=== PATIENT | female | born 1990 | race Two or more races ===

== ENCOUNTER 2018-05-28 22:31 | Emergency (ER) | payer OTHER ==
[~2018-05-28] VITALS: Ht 165.1 cm; Wt 114.5 kg
[2018-05-28] MEDS ORDERED: IV NORMAL SALINE 1,000ML 1,000 ML IV SCH (23:17)
--- NOTE | 2018-05-28 23:23 | PHYS DOC ---
Past History Past Medical History: Anxiety, Depression, Ectopic Past Surgical History: Cholecystectomy Adult General Chief Complaint Chief Complaint: ABDOMINAL PAIN HPI HPI Patient is a 27 year old female who presents with complaint of lower abdominal and rectal pain. Patient states her symptoms started yesterday and patient states that she had left-sided abdominal pain yesterday which has since resolved. Patient states that today she started having pain near her anus and states that it radiates through her perineum. Denies any abnormal vaginal bleeding or discharge. Has not noticed any draining lesions from her groin. Denies any recent illness. Rates her pain currently as 7 out of 10. Patient states that the pain worsens when she sits on the affected area. Denies constipation. Review of Systems Review of Systems Constitutional: Denies fever or chills [] Eyes: Denies change in visual acuity, redness, or eye pain [] HENT: Denies nasal congestion or sore throat [] Respiratory: Denies cough or shortness of breath [] Cardiovascular: Denies chest pain or edema[] GI: Pain near her anus, lower abdominal pain, denies nausea, vomiting, bloody stools or diarrhea [] : Denies dysuria or hematuria [] Musculoskeletal: Denies back pain or joint pain [] Integument: Denies rash or skin lesions [] Neurologic: Denies headache, focal weakness or sensory changes [] All other systems were reviewed and found to be within normal limits, except as documented in this note. Allergies Allergies Allergies Coded Allergies Type Severity Reaction Last Updated Verified No Known Drug Allergies 05/28/18 No Physical Exam Physical Exam Constitutional: Well developed, well nourished, appears in [id number] discomfort. [] HENT: Normocephalic, atraumatic, bilateral external ears normal, oropharynx moist, no oral exudates, nose normal. [] Eyes: PERRLA, EOMI, conjunctiva normal, no discharge. [] Neck: Normal range of motion, no tenderness, supple, no stridor. [] Cardiovascular:Heart rate regular rhythm, no murmur [] Lungs & Thorax: Bilateral breath sounds clear to auscultation [] Abdomen: Bowel sounds normal, soft, no tenderness, no masses, no pulsatile masses. Rectal: No external hemorrhoids were anal fissures, nontender on exam, no gross blood, no palpable hard stool[] Skin: Warm, dry, no erythema, no rash. [] Back: No tenderness, no CVA tenderness. [] Extremities: No tenderness, no cyanosis, no clubbing, ROM intact, no edema. [] Neurologic: Alert and oriented X 3, normal motor function, normal sensory function, no focal deficits noted. [] Current Patient Data Vital Signs Temperature 98.9, blood pressure 112/70, heart rate 102, respirations 22, 98% on room air Lab Results Laboratory Tests Test 05/28/18 22:45 05/28/18 22:56 05/28/18 23:25 Urine Collection Type Void Urine Color Yellow Urine Clarity Hazy Urine pH 6.0 Urine Specific [place] >=1.030 Urine Protein Trace Urine Glucose (UA) Neg mg/dL Urine Ketones (Stick) 40 mg/dL Urine Blood Large Urine Nitrite Neg Urine Bilirubin Neg Urine Urobilinogen Dipstick 0.2 mg/dL Urine Leukocyte Esterase Neg Urine RBC 20-40 /HPF Urine WBC 1-4 /HPF Urine Squamous Epithelial Cells Mod /LPF Urine Bacteria Few /HPF Urine Mucus Marked /LPF Bedside Urine HCG, Qualitative hcg negative White Blood Count 6.0 x10^3/uL Red Blood Count 4.53 x10^6/uL Hemoglobin 14.0 g/dL Hematocrit 41.4 % Mean Corpuscular Volume 91 fL Mean Corpuscular Hemoglobin 31 pg Mean Corpuscular Hemoglobin Concent 34 g/dL Red Cell Distribution Width 13.3 % Platelet Count 297 x10^3/uL Neutrophils (%) (Auto) 51 % Lymphocytes (%) (Auto) 37 % Monocytes (%) (Auto) 10 % Eosinophils (%) (Auto) 1 % Basophils (%) (Auto) 1 % Neutrophils # (Auto) 3.0 x10^3uL Lymphocytes # (Auto) 2.2 x10^3/uL Monocytes # (Auto) 0.6 x10^3/uL Eosinophils # (Auto) 0.0 x10^3/uL Basophils # (Auto) 0.0 x10^3/uL Sodium Level 138 mmol/L Potassium Level 3.3 mmol/L Chloride Level 100 mmol/L Carbon Dioxide Level 28 mmol/L Anion Gap 10 Blood Urea Nitrogen 11 mg/dL Creatinine 0.8 mg/dL Estimated GFR (Cockcroft-Gault) 86.0 BUN/Creatinine Ratio 14 Glucose Level 90 mg/dL Calcium Level 9.2 mg/dL Total Bilirubin 0.3 mg/dL Aspartate Amino Transf (AST/SGOT) 52 U/L Alanine Aminotransferase (ALT/SGPT) 135 U/L Alkaline Phosphatase 77 U/L Total Protein 7.9 g/dL Albumin 3.8 g/dL Albumin/Globulin Ratio 0.9 Current Medications Medications (Trade) Dose Ordered Sig/Angelic Route PRN Reason Start Time Stop Time Status Last Admin Dose Admin Fentanyl Citrate (Fentanyl 2ml Vial) 50 mcg PRN Q15MIN PRN IV PAIN GREATER THAN 3/10 05/28/18 23:30 05/29/18 23:29 05/28/18 23:45 Sodium Chloride 1,000 ml @ 1,000 mls/hr Q1H IV 05/28/18 23:17 05/29/18 00:16 DC 05/28/18 23:44 Ondansetron HCl (Zofran) 4 mg 1X ONCE IV 05/28/18 23:30 05/28/18 23:56 DC 05/28/18 23:44 Iohexol (Omnipaque 300 Mg/ml) 75 ml 1X ONCE IV 05/29/18 00:30 05/29/18 00:31 DC 05/29/18 00:10 Info (Do NOT chart on this entry -- for MONITORING) 1 each PRN DAILY PRN MC SEE COMMENTS 05/28/18 23:45 05/30/18 23:44 EKG EKG Not performed[] Radiology/Procedures Radiology/[place] [address] IMAGING REPORT Signed PATIENT: BARB LEVY ACCOUNT: [id number] : 1990 LOCATION: ER AGE: 27 SEX: F EXAM STATUS: REG ER ORD. PHYSICIAN: SERA LARSEN MD REASON: lower abdominal and rectal pain PROCEDURE: CT ABD PELV W/ IV CONTRST ONLY CT abdomen and pelvis with contrast 05/29/2018. Reason for exam: Lower abdominal pain extending to the rectum. History of ectopic and cholecystectomy. CT images were obtained through the abdomen and pelvis using an infusion of 75 mL Omnipaque 300. No oral contrast was given. Exposure: One or more of the following individualized dose reduction techniques were utilized for this examination: 1. Automated exposure control 2. Adjustment of the mA and/or kV according to patient size 3. Use of iterative reconstruction technique. FINDINGS: The lung bases are clear. There may be early fatty infiltration of the liver. No focal lesion is seen. The spleen appears normal. Both kidneys enhance with contrast. No mass or obstruction is seen. The adrenal glands are not enlarged. The pancreas appears normal. No retroperitoneal or mesenteric adenopathy is seen. There is no apparent abdominal mass or inflammatory process. A normal appendix is shown arising medially from the cecum. Images through the pelvis show no apparent abnormality of the distal ureters or bladder. No pelvic or inguinal adenopathy is seen. The uterus and right adnexal area appear normal for age. There appear to be cystic structures in the left ovary. There is a moderate amount of fluid in the pelvic cul-de-sac. There is no separate pelvic mass. IMPRESSION: There is moderate fluid in the pelvic cul-de-sac. There are is suggestion of a cystic structure or small cystic structures in the left ovary. Findings may indicate fluid from left ovarian cyst rupture. Reactive fluid from PID is also a consideration. Electronically signed by: Scarlett Pérez Jr., MD (05/29/2018 12:43 AM) [facility] DICTATED AND SIGNED BY: SCARLETT PÉREZ Jr, MD DATE: 05/29/18 0039 CC: SERA LARSEN MD; MANDY VALENTE DO ~ [] Course & Med Decision Making Course & Med Decision Making Pertinent Labs and Imaging studies reviewed. (See chart for details) Patient was given IV fluids, fentanyl, and Zofran in the emergency department. CT imaging shows evidence of a fluid collection in the pelvis adjacent to the left ovary it appears consistent with ruptured ovarian cyst. Patient's vital signs are stable and pain is controlled with medication at this time. The patient's fluid collection is likely causing rectal irritation leading to the patient's symptoms. Spoke with patient regarding diagnosis and that her condition is likely self-limited but will need close follow-up. Advised that the patient continue with oral hydration, rest, and recommended follow-up with NURSE RECEPTIONIST in the next 5 days for reevaluation. Recommended return to emergency department for any worsening symptoms. Patient voiced understanding and in agreement with treatment plan.[] Dragon Disclaimer Dragon Disclaimer This electronic medical record was generated, in whole or in part, using a voice recognition dictation system. Departure Departure: Impression: Primary Impression: Ruptured ovarian cyst Additional Impression: Pelvic fluid collection Disposition: HOME, SELF-CARE Condition: STABLE Referrals: MANDY VALENTE DO (PCP) Patient Instructions: Ovarian Cyst Additional Instructions: Follow-up with your NURSE RECEPTIONIST in the next 5 days for reevaluation. Return to the emergency department for any worsening symptoms. Scripts Hydrocodone Bit/Acetaminophen ([place] 5-325 TABLET) 1 Each Tablet 1-2 TAB PO Q4-6HRS PRN for PAIN, #20 TAB Prov: SERA LARSEN MD 05/29/18 Problem Qualifiers SERA LARSEN MD May 28, 2018 23:23
[2018-05-28] MEDS ORDERED: ONDANSETRON PF 4 MG/2 ML VIAL. IV ONE (23:30)
[2018-05-28] MEDS ORDERED: CONTRAST GIVEN MC PRN (23:45)
[2018-05-28 23:51] LABS: BASO % 1 % (0-3); EOS % 1 % (0-3); HEMATOCRIT 41.4 % (36.0-47.0); LYMPH # 2.2 x10^3/uL (1.0-4.8); LYMPH % 37 % (24-48); MEAN CORPUSCULAR HEMOGLOBIN 31 pg (25-35); MEAN CORPUSCULAR HGB CONC 34 g/dL (31-37); MEAN CORPUSCULAR VOLUME 91 fL (79-100); MONO # 0.6 x10^3/uL (0.0-1.1); MONO % 10 % (0-9); NEUT % 51 % (31-73); PLATELET COUNT 297 x10^3/uL (140-400); RED BLOOD COUNT 4.53 x10^6/uL (3.50-5.40); RED CELL DISTRIBUTION WIDTH 13.3 % (11.5-14.5)
[2018-05-28 23:54] LABS: BACTERIA,URINE FEW /HPF (0-FEW); BILIRUBIN,URINE NEG (NEG); CLARITY,URINE HAZY; COLOR,URINE YELLOW; GLUCOSE,URINE NEG (NEG); NITRITE,URINE NEG (NEG); RBC,URINE 20-40 /HPF (0-2); SQUAMOUS EPITHELIAL CELL,UR MOD /LPF; UROBILINOGEN,URINE 0.2 mg/dL (0.2 mg/dL)
[2018-05-29 00:08] LABS: ALBUMIN 3.8 g/dL (3.4-5.0); ALBUMIN/GLOBULIN RATIO 0.9 (1.0-1.7); CALCIUM 9.2 mg/dL (8.5-10.1); CREATININE 0.8 mg/dL (0.6-1.0); POTASSIUM 3.3 mmol/L (3.5-5.1); TOTAL BILIRUBIN 0.3 mg/dL (0.2-1.0); TOTAL PROTEIN 7.9 g/dL (6.4-8.2)
[2018-05-29] MEDS ORDERED: IOHEXOL 300 MG/ML 75 ML VIAL. IV ONE (00:30)
--- NOTE | 2018-05-29 00:47 | RAD ---
CT abdomen and pelvis with contrast 05/29/2018. Reason for exam: Lower abdominal pain extending to the rectum. History of ectopic and cholecystectomy. CT images were obtained through the abdomen and pelvis using an infusion of 75 mL Omnipaque 300. No oral contrast was given. Exposure: One or more of the following individualized dose reduction techniques were utilized for this examination: 1. Automated exposure control 2. Adjustment of the mA and/or kV according to patient size 3. Use of iterative reconstruction technique. FINDINGS: The lung bases are clear. There may be early fatty infiltration of the liver. No focal lesion is seen. The spleen appears normal. Both kidneys enhance with contrast. No mass or obstruction is seen. The adrenal glands are not enlarged. The pancreas appears normal. No retroperitoneal or mesenteric adenopathy is seen. There is no apparent abdominal mass or inflammatory process. A normal appendix is shown arising medially from the cecum. Images through the pelvis show no apparent abnormality of the distal ureters or bladder. No pelvic or inguinal adenopathy is seen. The uterus and right adnexal area appear normal for age. There appear to be cystic structures in the left ovary. There is a moderate amount of fluid in the pelvic cul-de-sac. There is no separate pelvic mass. IMPRESSION: There is moderate fluid in the pelvic cul-de-sac. There are is suggestion of a cystic structure or small cystic structures in the left ovary. Findings may indicate fluid from left ovarian cyst rupture. Reactive fluid from PID is also a consideration. Electronically signed by: Norberto Pérez Jr., MD (05/29/2018 12:43 AM) [facility]
[2018-05-29] MEDS ORDERED: HYDR-3165 PO (01:49)
[2018-05-29 01:55] VITALS: BP 122/68
[2018-05-29] MEDS ORDERED: HYDROcodone/APAP 5/325MG 1 TAB TABLET PO ONE (02:00)
== END 2018-05-29 01:59 | disposition home or self-care (01) ==
LOC: ER 22:31
DX: N83.292 Other ovarian cyst, left side (principal); R18.8 Other ascites; Z90.49 Acquired absence of other specified parts of digestive tract
CPT/HCPCS: 36415; 74177; 80053; 81001; 81025; 85025; 96374; 96375; 99284; J2405; J3010; Q9967; J7030

== ENCOUNTER → 2018-06-13 | Outpatient (CLI) | payer OTHER ==
[2018-05-29 01:55] VITALS: BP 122/68
[~2018-06-13] MED LIST: HYDR-3165 PO
--- NOTE | 2018-06-13 14:02 | RAD ---
DATE: 06/13/2018 EXAM: MAMMO MARCOS DOUGLAS BILAT, BREAST BILATERAL HISTORY: Family history of breast cancer, left axillary lump COMPARISON: Baseline study This study was interpreted with the benefit of Computerized Aided Detection (CAD). Breast Density: SCATTERED The breast parenchyma shows scattered fibroglandular densities. Breast parenchyma level B. FINDINGS: No breast mass or suspicious microcalcifications are seen. Benign-appearing lymph node type densities are partially visualized in the axillary regions. IMPRESSION: There is no mammographic evidence of malignancy in either breast. Bilateral breast ultrasound, 06/13/2018: History: Family history of breast cancer Both breasts were carefully scanned. The fibroglandular shadows are heterogeneous. No solid mass or abnormal fluid collection is seen. No abnormality was identified in either axillary region. IMPRESSION: Negative bilateral breast ultrasound. BI-RADS CATEGORY: 1 NEGATIVE RECOMMENDED FOLLOW-UP: CLIN FOLLOW UP IMAGING CLINICALLY INDICATED PQRS compliance statement: Patient information was entered into a reminder system with a target due date for the next mammogram. Mammography is a sensitive method for finding small breast cancers, but it does not detect them all and is not a substitute for careful clinical examination. A negative mammogram does not negate a clinically suspicious finding and should not result in delay in biopsying a clinically suspicious abnormality. "Our facility is accredited by the [employer] Mammography Program."
== END | disposition home or self-care (01) ==
LOC: MAMMO 12:33 → EDUNIT# 13:00
PROVIDERS: ATTEND Surgery
DX: R92.8 Other abnormal and inconclusive findings on diagnostic imaging of breast (principal); Z80.3 Family history of malignant neoplasm of breast
CPT/HCPCS: 76641; 77066; G0279; 77062

== ENCOUNTER 2018-11-18 22:40 | Emergency (ER) | payer OTHER ==
[~2018-11-18] VITALS: Ht 165.1 cm; Wt 104.3 kg
--- NOTE | 2018-11-18 23:39 | ED.ADGEN ---
Past History Past Medical History: Anxiety, Depression, Ectopic Past Surgical History: Cholecystectomy Alcohol Use: None Drug Use: None Adult General Chief Complaint Chief Complaint ".. I got a bad taste in my mouth.. not feeling right.... nauseated.." HPI HPI Patient is a 28 year old female who presents with above hx and complaints of nausea, metal taste in mouth x 3 days. No travel. No specific ill contacts. No history immunosuppression. Patient doesn't feel she is having any intake of bad food. No history of trauma. Patient has history of hypertension and polycystic ovary disease. Review of Systems Review of Systems Constitutional: Denies fever or chills [] Eyes: Denies change in visual acuity, redness, or eye pain [] HENT: Denies nasal congestion or sore throat [] Respiratory: Denies cough or shortness of breath [] Cardiovascular: No additional information not addressed in HPI [] GI: Denies abdominal pain, , vomiting, bloody stools or diarrhea []complains of nausea : Denies dysuria or hematuria [] Musculoskeletal: Denies back pain or joint pain [] Integument: Denies rash or skin lesions [] Neurologic: Denies headache, focal weakness or sensory changes [] Endocrine: Denies polyuria or polydipsia [] All other systems were reviewed and found to be within normal limits, except as documented in this note. Family History Family History Noncontributory Current Medications Current Medications Current Medications Medications (Trade) Dose Ordered Sig/Angelic Start Time Stop Time Status Last Admin Dose Admin Lactated Ringer's 1,000 ml @ 1,000 mls/hr Q1H 11/19/18 00:50 11/19/18 02:18 DC 11/19/18 01:03 1,000 MLS/HR Ondansetron HCl (Zofran Odt) 8 mg 1X ONCE 11/18/18 23:45 11/18/18 23:46 DC 11/19/18 00:39 8 MG Allergies Allergies Allergies Coded Allergies Type Severity Reaction Last Updated Verified No Known Drug Allergies 05/28/18 No Physical Exam Physical Exam Constitutional: no acute distress, non-toxic appearance. [] HENT: Normocephalic, atraumatic, bilateral external ears normal, oropharynx moist, no oral exudates, nose normal. [] Eyes: PERRLA, EOMI, conjunctiva normal, no discharge. [] Neck: Normal range of motion, no tenderness, supple, no stridor. [] Cardiovascular:Heart rate regular rhythm, no murmur [] Lungs & Thorax: Bilateral breath sounds clear to auscultation [] Abdomen: Bowel sounds normal, soft, no tenderness, no masses, no pulsatile masses. [] Obese. Old surgical scar Skin: Warm, dry, no erythema, no rash. [] Back: No tenderness, no CVA tenderness. [] Extremities: No tenderness, no cyanosis, no clubbing, ROM intact, no edema. [] Neurologic: Alert and oriented X 3, normal motor function, normal sensory function, no focal deficits noted. [] Psychologic: Affect normal, judgement normal, mood normal. [] Current Patient Data Vital Signs Vital Signs Date Time Temp Pulse Resp B/P (MAP) Pulse Ox O2 Delivery O2 Flow Rate FiO2 11/19/18 00:42 98.1 86 18 98 Room Air Lab Results Laboratory Tests Test 11/18/18 23:59 11/19/18 00:14 11/19/18 01:15 Urine Collection Type Unknown Urine Color Straw Urine Clarity Hazy Urine pH 6.0 Urine Specific [place] 1.010 Urine Protein Neg (NEG-TRACE) Urine Glucose (UA) Neg mg/dL (NEG) Urine Ketones (Stick) Neg mg/dL (NEG) Urine Blood Small (NEG) Urine Nitrite Neg (NEG) Urine Bilirubin Neg (NEG) Urine Urobilinogen Dipstick 0.2 mg/dL (0.2 mg/dL) Urine Leukocyte Esterase Neg (NEG) Urine RBC 1-2 /HPF (0-2) Urine WBC Occ /HPF (0-4) Urine Squamous Epithelial Cells Few /LPF Urine Bacteria Few /HPF (0-FEW) Urine Opiates Screen Neg (NEG) Urine Methadone Screen Neg (NEG) Urine Barbiturates Neg (NEG) Urine Phencyclidine Screen Neg (NEG) Urine Amphetamine/Methamphetamine Pos (NEG) Urine Benzodiazepines Screen Neg (NEG) Urine Cocaine Screen Neg (NEG) Urine Cannabinoids Screen Neg (NEG) Urine Ethyl Alcohol Neg (NEG) POC Urine HCG, Qualitative hcg negative (Negative) White Blood Count 10.2 x10^3/uL (4.0-11.0) Red Blood Count 4.41 x10^6/uL (3.50-5.40) Hemoglobin 14.1 g/dL (12.0-15.5) Hematocrit 40.7 % (36.0-47.0) Mean Corpuscular Volume 92 fL (79-100) Mean Corpuscular Hemoglobin 32 pg (25-35) Mean Corpuscular Hemoglobin Concent 35 g/dL (31-37) Red Cell Distribution Width 13.6 % (11.5-14.5) Platelet Count 343 x10^3/uL (140-400) Neutrophils (%) (Auto) 58 % (31-73) Lymphocytes (%) (Auto) 34 % (24-48) Monocytes (%) (Auto) 7 % (0-9) Eosinophils (%) (Auto) 1 % (0-3) Basophils (%) (Auto) 1 % (0-3) Neutrophils # (Auto) 5.9 x10^3uL (1.8-7.7) Lymphocytes # (Auto) 3.5 x10^3/uL (1.0-4.8) Monocytes # (Auto) 0.7 x10^3/uL (0.0-1.1) Eosinophils # (Auto) 0.1 x10^3/uL (0.0-0.7) Basophils # (Auto) 0.1 x10^3/uL (0.0-0.2) Sodium Level 137 mmol/L (136-145) Potassium Level 4.1 mmol/L (3.5-5.1) Chloride Level 101 mmol/L (98-107) Carbon Dioxide Level 31 mmol/L (21-32) Anion Gap 5 (6-14) L Blood Urea Nitrogen 15 mg/dL (7-20) Creatinine 0.7 mg/dL (0.6-1.0) Estimated GFR (Cockcroft-Gault) 99.6 Glucose Level 88 mg/dL (70-99) Calcium Level 9.6 mg/dL (8.5-10.1) Troponin I Quantitative < 0.017 ng/mL (0-0.055) EKG EKG [] Radiology/Procedures Radiology/Procedures [] Course & Med Decision Making Course & Med Decision Making Pertinent Labs and Imaging studies reviewed. (See chart for details) She push fluids. Take meds as directed. Take Zofran as needed for nausea and vomiting. Follow-up primary care. No solids or milk products if nauseated or active vomiting. Return if any concerns. [] Final Impression Final Impression 1. Nausea[] 2. Viral syndrome. Dragon Disclaimer Benny Disclaimer This electronic medical record was generated, in whole or in part, using a voice recognition dictation system. Discharge Summary Visit Information Final Diagnosis Problems Medical Problems: (1) Viral syndrome Status: Acute Brief Hospital Course Allergies Allergies Coded Allergies Type Severity Reaction Last Updated Verified No Known Drug Allergies 05/28/18 No Vital Signs Vital Signs Date Time Temp Pulse Resp B/P (MAP) Pulse Ox O2 Delivery O2 Flow Rate FiO2 11/19/18 00:42 98.1 86 18 98 Room Air Lab Results Laboratory Tests Test 11/18/18 23:59 11/19/18 00:14 11/19/18 01:15 Urine Collection Type Unknown Urine Color Straw Urine Clarity Hazy Urine pH 6.0 Urine Specific [place] 1.010 Urine Protein Neg (NEG-TRACE) Urine Glucose (UA) Neg mg/dL (NEG) Urine Ketones (Stick) Neg mg/dL (NEG) Urine Blood Small (NEG) Urine Nitrite Neg (NEG) Urine Bilirubin Neg (NEG) Urine Urobilinogen Dipstick 0.2 mg/dL (0.2 mg/dL) Urine Leukocyte Esterase Neg (NEG) Urine RBC 1-2 /HPF (0-2) Urine WBC Occ /HPF (0-4) Urine Squamous Epithelial Cells Few /LPF Urine Bacteria Few /HPF (0-FEW) Urine Opiates Screen Neg (NEG) Urine Methadone Screen Neg (NEG) Urine Barbiturates Neg (NEG) Urine Phencyclidine Screen Neg (NEG) Urine Amphetamine/Methamphetamine Pos (NEG) Urine Benzodiazepines Screen Neg (NEG) Urine Cocaine Screen Neg (NEG) Urine Cannabinoids Screen Neg (NEG) Urine Ethyl Alcohol Neg (NEG) Bedside Urine HCG, Qualitative hcg negative (Negative) White Blood Count 10.2 x10^3/uL (4.0-11.0) Red Blood Count 4.41 x10^6/uL (3.50-5.40) Hemoglobin 14.1 g/dL (12.0-15.5) Hematocrit 40.7 % (36.0-47.0) Mean Corpuscular Volume 92 fL (79-100) Mean Corpuscular Hemoglobin 32 pg (25-35) Mean Corpuscular Hemoglobin Concent 35 g/dL (31-37) Red Cell Distribution Width 13.6 % (11.5-14.5) Platelet Count 343 x10^3/uL (140-400) Neutrophils (%) (Auto) 58 % (31-73) Lymphocytes (%) (Auto) 34 % (24-48) Monocytes (%) (Auto) 7 % (0-9) Eosinophils (%) (Auto) 1 % (0-3) Basophils (%) (Auto) 1 % (0-3) Neutrophils # (Auto) 5.9 x10^3uL (1.8-7.7) Lymphocytes # (Auto) 3.5 x10^3/uL (1.0-4.8) Monocytes # (Auto) 0.7 x10^3/uL (0.0-1.1) Eosinophils # (Auto) 0.1 x10^3/uL (0.0-0.7) Basophils # (Auto) 0.1 x10^3/uL (0.0-0.2) Sodium Level 137 mmol/L (136-145) Potassium Level 4.1 mmol/L (3.5-5.1) Chloride Level 101 mmol/L (98-107) Carbon Dioxide Level 31 mmol/L (21-32) Anion Gap 5 (6-14) Blood Urea Nitrogen 15 mg/dL (7-20) Creatinine 0.7 mg/dL (0.6-1.0) Estimated GFR (Cockcroft-Gault) 99.6 Glucose Level 88 mg/dL (70-99) Calcium Level 9.6 mg/dL (8.5-10.1) Troponin I Quantitative < 0.017 ng/mL (0-0.055) Brief Hospital Course Ms. Graham is a 28 old female who presented with nausea and malaise. Discharge Information Condition at Discharge: Improved, Stable Disposition/Orders: D/C to Home Dischare Medications Current Medications Ondansetron HCl (Zofran Odt) 8 mg 1X ONCE PO Last administered on 11/19/18at 00:39; Admin Dose 8 MG; Start 11/18/18 at 23:45; Stop 11/18/18 at 23:46; Status DC Lactated Ringer's 1,000 ml @ 1,000 mls/hr Q1H IV Last administered on 11/19/18at 01:03; Admin Dose 1,000 MLS/HR; Start 11/19/18 at 00:50; Stop 11/19/18 at 02:18; Status DC Active Scripts Active Zofran (Ondansetron Hcl) 8 Mg Tablet 8 Mg PO QIDPRN PRN [place] 5-325 Tablet (Hydrocodone Bit/Acetaminophen) 1 Each Tablet 1-2 Tab PO Q4- 6HRS PRN Dragon Disclaimer This chart was dictated in whole or in part using Voice Recognition software in a busy, high-work load, and often noisy Emergency Department environment. It may contain unintended and wholly unrecognized errors or omissions. JEN FISHER MD Nov 18, 2018 23:39
[2018-11-19] MEDS: ONDANSETRON ODT 4 MG TAB.RAPDIS PO ONE (00:39)
[2018-11-19 00:42] VITALS: BP 120/77
[2018-11-19 00:58] LABS: BARBITURATES NEG (NEG); BENZODIAZEPINES NEG (NEG); CANNABINOIDS NEG (NEG); COCAINE NEG (NEG); METHADONE NEG (NEG); OPIATES NEG (NEG); PHENCYCLIDINE NEG (NEG)
[2018-11-19 00:59] LABS: BACTERIA,URINE FEW /HPF (0-FEW); BILIRUBIN,URINE NEG (NEG); CLARITY,URINE HAZY; COLOR,URINE STRAW; GLUCOSE,URINE NEG (NEG); NITRITE,URINE NEG (NEG); UROBILINOGEN,URINE 0.2 mg/dL (0.2 mg/dL); WBC,URINE OCC /HPF (0-4)
[2018-11-19 01:00] LABS: SQUAMOUS EPITHELIAL CELL,UR FEW /LPF
[2018-11-19] MEDS: IV RINGERS SOLUTION,LACTATED 1,000 ML IV SCH (01:03)
[2018-11-19 01:05] LABS: AMPHETAMINE/METHAMPHETAMINE POS (NEG)
[2018-11-19 01:48] LABS: BASO # 0.1 x10^3/uL (0.0-0.2); BASO % 1 % (0-3); EOS # 0.1 x10^3/uL (0.0-0.7); EOS % 1 % (0-3); HEMATOCRIT 40.7 % (36.0-47.0); HEMOGLOBIN 14.1 g/dL (12.0-15.5); LYMPH # 3.5 x10^3/uL (1.0-4.8); LYMPH % 34 % (24-48); MEAN CORPUSCULAR HEMOGLOBIN 32 pg (25-35); MEAN CORPUSCULAR HGB CONC 35 g/dL (31-37); MEAN CORPUSCULAR VOLUME 92 fL (79-100); MONO # 0.7 x10^3/uL (0.0-1.1); MONO % 7 % (0-9); NEUT # 5.9 x10^3uL (1.8-7.7); NEUT % 58 % (31-73); PLATELET COUNT 343 x10^3/uL (140-400); RED BLOOD COUNT 4.41 x10^6/uL (3.50-5.40); RED CELL DISTRIBUTION WIDTH 13.6 % (11.5-14.5); WHITE BLOOD COUNT 10.2 x10^3/uL (4.0-11.0)
[2018-11-19 01:52] LABS: CALCIUM 9.6 mg/dL (8.5-10.1); CREATININE 0.7 mg/dL (0.6-1.0); GFR 99.6; POTASSIUM 4.1 mmol/L (3.5-5.1)
[2018-11-19] MEDS ORDERED: ONDA8TAB9 PO (02:42)
== END 2018-11-19 02:55 | disposition home or self-care (01) ==
LOC: ER 22:40
DX: B34.9 Viral infection, unspecified (principal); F41.9 Anxiety disorder, unspecified; F32.9 Major depressive disorder, single episode, unspecified
CPT/HCPCS: 36415; 80048; 80307; 81001; 81025; 84484; 85025; 99284; J7120; Q0162

== ENCOUNTER 2019-04-07 22:20 | Emergency (ER) | payer OTHER ==
[~2019-04-07] VITALS: Ht 165.1 cm; Wt 115.7 kg
[~2019-04-07 22:20] MED LIST changes: +ONDA8TAB9 PO
[2019-04-07] MEDS ORDERED: IV RINGERS SOLUTION,LACTATED 1,000 ML IV SCH (22:23)
--- NOTE | 2019-04-07 22:23 | ED.ADGEN ---
Past History Past Medical History: Anxiety, Depression, Endometriosis, Ectopic , Other Past Surgical History: Cholecystectomy, Other Past Surgical History Right ectopic , G3, E1, P1, vaginal Alcohol Use: None Drug Use: None Adult General Chief Complaint Chief Complaint "... I started having some abdomen pain... and then I notice some blood ... almost like a period... I am about 10 weeks HPI HPI Patient is a 28 year old female who presents with above hx and complaints abdomen cramping and bleeding. Pt. Hx. G3, E1, P 1 vaginal delivery. Prior Ectopic had tubal excision of ectopic. No hx of STD's. 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 No hx of trauma. No hx of coagulopathy. Pt. states bleeding was slightly less than a period. Patient is taking vitamins. Review of Systems Review of Systems Constitutional: Denies fever or chills [] Eyes: Denies change in visual acuity, redness, or eye pain [] HENT: Denies nasal congestion or sore throat [] Respiratory: Denies cough or shortness of breath [] Cardiovascular: No additional information not addressed in HPI [] GI: Complaints of abdominal pain, nausea,. And vaginal bleeding. Denies vomiting, bloody stools or diarrhea [] : Denies dysuria or hematuria [] Musculoskeletal: Denies back pain or joint pain [] Integument: Denies rash or skin lesions [] Neurologic: Denies headache, focal weakness or sensory changes [] Endocrine: Denies polyuria or polydipsia [] All other systems were reviewed and found to be within normal limits, except as documented in this note. Family History Family History Noncontributory Current Medications Current Medications Current Medications Medications (Trade) Dose Ordered Sig/Angelic Start Time Stop Time Status Last Admin Dose Admin Azithromycin (Zithromax) 1,000 mg 1X ONCE 04/08/19 01:15 04/08/19 01:16 DC 04/08/19 02:03 1,000 MG Ceftriaxone Sodium 1 gm/ Sodium Chloride 50 ml @ 100 mls/hr 1X ONCE 04/08/19 01:15 04/08/19 01:44 DC 04/08/19 02:02 100 MLS/HR Ceftriaxone Sodium (Rocephin) 1 gm STK-MED ONCE 04/08/19 01:54 04/08/19 01:55 DC Lactated Ringer's 1,000 ml @ 1,000 mls/hr Q1H 04/07/19 22:23 04/07/19 23:22 DC 04/07/19 23:31 1,000 MLS/HR Metronidazole (Flagyl) 2,000 mg 1X ONCE 04/08/19 01:15 04/08/19 01:16 DC 04/08/19 02:03 2,000 MG Ondansetron HCl (Zofran) 8 mg 1X ONCE 04/08/19 01:15 04/08/19 01:16 DC 04/08/19 01:59 8 MG Sodium Chloride 50 ml @ As Directed STK-MED ONCE 04/08/19 02:00 04/08/19 02:00 DC Allergies Allergies Allergies Coded Allergies Type Severity Reaction Last Updated Verified No Known Drug Allergies 05/28/18 No Physical Exam Physical Exam Constitutional: Moderate acute distress, non-toxic appearance. [] HENT: Normocephalic, atraumatic, bilateral external ears normal, oropharynx moist, no oral exudates, nose normal. [] Eyes: PERRLA, EOMI, conjunctiva normal, no discharge. [] Neck: Normal range of motion, no tenderness, supple, no stridor. [] Cardiovascular:Heart rate regular rhythm, no murmur [] Lungs & Thorax: Bilateral breath sounds clear to auscultation [] Abdomen: Bowel sounds normal, soft, mild generalized pelvic tenderness, no masses, no pulsatile masses. [] Vaginal exam shows some old blood. Os is closed with some blood. Some mild cervical tenderness. Rectal non-tender. Skin: Warm, dry, no erythema, no rash. [] Back: No tenderness, no CVA tenderness. [] Extremities: No tenderness, no cyanosis, no clubbing, ROM intact, no edema. [] Neurologic: Alert and oriented X 3, normal motor function, normal sensory function, no focal deficits noted. [] Psychologic: Affect anxious judgement normal, mood normal. [] Current Patient Data Vital Signs Vital Signs Date Time Temp Pulse Resp B/P (MAP) Pulse Ox O2 Delivery O2 Flow Rate FiO2 04/08/19 02:18 98.1 84 20 109/64 (79) 97 Room Air Lab Results Laboratory Tests Test 04/07/19 23:00 04/07/19 23:59 Urine Collection Type Void Urine Color Yellow Urine Clarity Hazy Urine pH 7.0 Urine Specific [place] 1.020 Urine Protein Trace (NEG-TRACE) Urine Glucose (UA) Neg mg/dL (NEG) Urine Ketones (Stick) Neg mg/dL (NEG) Urine Blood Large (NEG) Urine Nitrite Neg (NEG) Urine Bilirubin Neg (NEG) Urine Urobilinogen Dipstick 0.2 mg/dL (0.2 mg/dL) Urine Leukocyte Esterase Trace (NEG) Urine RBC 11-20 /HPF (0-2) Urine WBC 1-4 /HPF (0-4) Urine Squamous Epithelial Cells Many /LPF Urine Bacteria Mod /HPF (0-FEW) POC Urine HCG, Qualitative hcg positive (Negative) Urine Opiates Screen Neg (NEG) Urine Methadone Screen Neg (NEG) Urine Barbiturates Neg (NEG) Urine Phencyclidine Screen Neg (NEG) Urine Amphetamine/Methamphetamine Neg (NEG) Urine Benzodiazepines Screen Neg (NEG) Urine Cocaine Screen Neg (NEG) Urine Cannabinoids Screen Neg (NEG) Urine Ethyl Alcohol Neg (NEG) White Blood Count 10.7 x10^3/uL (4.0-11.0) Red Blood Count 3.93 x10^6/uL (3.50-5.40) Hemoglobin 12.3 g/dL (12.0-15.5) Hematocrit 37.1 % (36.0-47.0) Mean Corpuscular Volume 94 fL (79-100) Mean Corpuscular Hemoglobin 31 pg (25-35) Mean Corpuscular Hemoglobin Concent 33 g/dL (31-37) Red Cell Distribution Width 13.4 % (11.5-14.5) Platelet Count 365 x10^3/uL (140-400) Neutrophils (%) (Auto) 60 % (31-73) Lymphocytes (%) (Auto) 32 % (24-48) Monocytes (%) (Auto) 7 % (0-9) Eosinophils (%) (Auto) 2 % (0-3) Basophils (%) (Auto) 0 % (0-3) Neutrophils # (Auto) 6.4 x10^3uL (1.8-7.7) Lymphocytes # (Auto) 3.4 x10^3/uL (1.0-4.8) Monocytes # (Auto) 0.7 x10^3/uL (0.0-1.1) Eosinophils # (Auto) 0.2 x10^3/uL (0.0-0.7) Basophils # (Auto) 0.0 x10^3/uL (0.0-0.2) Prothrombin Time 10.0 SEC (9.4-11.4) Prothrombin Time INR 1.0 (0.9-1.1) Activated Partial Thromboplast Time 25 SEC (23-33) Maternal Serum HCG Beta Subunit 238375 mIU/mL (0-6) H Sodium Level 141 mmol/L (136-145) Potassium Level 3.6 mmol/L (3.5-5.1) Chloride Level 104 mmol/L (98-107) Carbon Dioxide Level 28 mmol/L (21-32) Anion Gap 9 (6-14) Blood Urea Nitrogen 6 mg/dL (7-20) L Creatinine 0.5 mg/dL (0.6-1.0) L Estimated GFR (Cockcroft-Gault) 146.9 Glucose Level 82 mg/dL (70-99) Calcium Level 8.9 mg/dL (8.5-10.1) Total Bilirubin 0.2 mg/dL (0.2-1.0) Direct Bilirubin 0.1 mg/dL (0.0-0.2) Aspartate Amino Transferase (AST) 19 U/L (15-37) Alanine Aminotransferase (ALT) 30 U/L (14-59) Alkaline Phosphatase 50 U/L (46-116) Total Protein 7.3 g/dL (6.4-8.2) Albumin 3.3 g/dL (3.4-5.0) L Lipase 169 U/L (73-393) Microbiology 04/07/19 Wet Prep - Final, Complete Microbiology 04/07/19 Wet Prep - Final, Complete EKG EKG [] Radiology/Procedures Radiology/Procedures [][address] [address] IMAGING REPORT Signed PATIENT: BARB LEVY AACCOUNT: [id number] : 1990 LOCATION: ER AGE: 28 SEX: F EXAM STATUS: REG ER ORD. PHYSICIAN: JEN FISHER MD REASON: abd. pain , 10 wks preg PROCEDURE: OB <14 WKS W/TV EXAM: OBSTETRIC ULTRASOUND, <14 WEEKS. HISTORY: Pelvic/abdominal pain in . COMPARISON: None. FINDINGS: Sonographic evaluation of the pelvis was performed transabdominally and transvaginally. The uterus is anteverted and measures 14.8 x 7.4 cm. There is a single intrauterine gestation measuring 11 weeks 0 days. heart rate is 168 bpm. A yolk sac is visualized. The gestational sac is regular. A subchorionic collection measures 3.5 x 2.9 x 1.2 cm The cervix is closed and measures 4.8 cm. A nabothian cyst measures 1.3 cm. The left ovary measures 3.6 x 2.3 cm. The right ovary measures 3.0 x 1.8 cm. There is normal Doppler flow bilaterally. There is no adnexal mass. There is no significant free fluid. IMPRESSION: 1. Single intrauterine gestation measuring 11 weeks 0 days. heart rate 168 bpm. 2. 3.5 x 2.9 x 1.2 cm subchorionic hematoma. Ongoing follow-up is recommended. Electronically signed by: Darien Gallardo MD (04/08/2019 12:05 AM) [facility] DICTATED AND SIGNED BY: GIOVANA GALLARDO MD DATE: 04/08/19 0005 CC: JEN FISHER MD; PCP,UNKNOWN ~ Course & Med Decision Making Course & Med Decision Making Pertinent Labs and Imaging studies reviewed. (See chart for details) She continue pad counts. Patient follow-up pending cultures. Patient take Keflex 500 mg 3 times a day. Patient to follow-up ICE CREAM CHEF. Patient continue vitamins. Patient return if any concerns. Patient take only Tylenol for pain. Patient follow-up pending cultures. [] Final Impression Final Impression 1. Threaten [] 2. Intrauterine at 11 weeks 0 days 3. heart rate 168 4. Subchronic hematoma 5. Blood type 0 + 6. G3, E1, P1 7. Bacterial vaginosis Dragon Disclaimer Dragon Disclaimer This electronic medical record was generated, in whole or in part, using a voice recognition dictation system. JEN FISHER MD Apr 07, 2019 22:23
[2019-04-07] MEDS ORDERED: ONDANSETRON PF 4 MG/2 ML VIAL. IVP ONE (22:45)
[2019-04-07 23:49] LABS: BILIRUBIN,URINE NEG (NEG); CLARITY,URINE HAZY; COLOR,URINE YELLOW; GLUCOSE,URINE NEG (NEG)
[2019-04-07 23:50] LABS: BACTERIA,URINE MOD /HPF (0-FEW); NITRITE,URINE NEG (NEG); SQUAMOUS EPITHELIAL CELL,UR MANY /LPF; UROBILINOGEN,URINE 0.2 mg/dL (0.2 mg/dL)
--- NOTE | 2019-04-08 00:08 | RAD ---
EXAM: OBSTETRIC ULTRASOUND, <14 WEEKS. HISTORY: Pelvic/abdominal pain in . COMPARISON: None. FINDINGS: Sonographic evaluation of the pelvis was performed transabdominally and transvaginally. The uterus is anteverted and measures 14.8 x 7.4 cm. There is a single intrauterine gestation measuring 11 weeks 0 days. heart rate is 168 bpm. A yolk sac is visualized. The gestational sac is regular. A subchorionic collection measures 3.5 x 2.9 x 1.2 cm The cervix is closed and measures 4.8 cm. A nabothian cyst measures 1.3 cm. The left ovary measures 3.6 x 2.3 cm. The right ovary measures 3.0 x 1.8 cm. There is normal Doppler flow bilaterally. There is no adnexal mass. There is no significant free fluid. IMPRESSION: 1. Single intrauterine gestation measuring 11 weeks 0 days. heart rate 168 bpm. 2. 3.5 x 2.9 x 1.2 cm subchorionic hematoma. Ongoing follow-up is recommended. Electronically signed by: Darien Gallardo MD (04/08/2019 12:05 AM) [facility]
[2019-04-08 00:24] LABS: BASO % 0 % (0-3); EOS # 0.2 x10^3/uL (0.0-0.7); EOS % 2 % (0-3); HEMATOCRIT 37.1 % (36.0-47.0); HEMOGLOBIN 12.3 g/dL (12.0-15.5); LYMPH # 3.4 x10^3/uL (1.0-4.8); LYMPH % 32 % (24-48); MEAN CORPUSCULAR HEMOGLOBIN 31 pg (25-35); MEAN CORPUSCULAR HGB CONC 33 g/dL (31-37); MEAN CORPUSCULAR VOLUME 94 fL (79-100); MONO # 0.7 x10^3/uL (0.0-1.1); MONO % 7 % (0-9); NEUT # 6.4 x10^3uL (1.8-7.7); NEUT % 60 % (31-73); PLATELET COUNT 365 x10^3/uL (140-400); RED BLOOD COUNT 3.93 x10^6/uL (3.50-5.40); RED CELL DISTRIBUTION WIDTH 13.4 % (11.5-14.5); WHITE BLOOD COUNT 10.7 x10^3/uL (4.0-11.0)
[2019-04-08 00:25] LABS: BARBITURATES NEG (NEG); BENZODIAZEPINES NEG (NEG); CANNABINOIDS NEG (NEG); COCAINE NEG (NEG); METHADONE NEG (NEG); OPIATES NEG (NEG); PHENCYCLIDINE NEG (NEG)
[2019-04-08 00:29] LABS: AMPHETAMINE/METHAMPHETAMINE NEG (NEG)
[2019-04-08 00:40] LABS: ALBUMIN 3.3 g/dL (3.4-5.0); CALCIUM 8.9 mg/dL (8.5-10.1); CREATININE 0.5 mg/dL (0.6-1.0); DIRECT BILIRUBIN 0.1 mg/dL (0.0-0.2); GFR 146.9; POTASSIUM 3.6 mmol/L (3.5-5.1); TOTAL BILIRUBIN 0.2 mg/dL (0.2-1.0); TOTAL PROTEIN 7.3 g/dL (6.4-8.2)
[2019-04-08] MEDS ORDERED: metroNIDAZOLE 500 MG TABLET PO ONE (01:15)
[2019-04-08] MEDS ORDERED: ONDANSETRON PF 4 MG/2 ML VIAL. IVP ONE (01:15)
[2019-04-08] MEDS ORDERED: AZITHROMYCIN 250 MG TABLET. PO ONE (01:15)
[2019-04-08] MEDS ORDERED: CEPH-264 PO (01:21)
[2019-04-08] MEDS ORDERED: IV NORMAL SALINE 50ML 50 ML ONE ×2 (01:54→02:00)
[2019-04-08] MEDS ORDERED: cefTRIAXone SODIUM 1 GM VIAL ONE (01:54)
[2019-04-08 02:18] VITALS: BP 109/64
[2019-04-10 17:08] LABS: CHLAMYDIA PROBE Negative (Negative)
== END 2019-04-08 02:20 | disposition home or self-care (01) ==
LOC: ER 22:20
DX: O20.0 Threatened abortion (principal); I60.9 Nontraumatic subarachnoid hemorrhage, unspecified; O23.591 Infection of other part of genital tract in pregnancy, first trimester; B96.89 Other specified bacterial agents as the cause of diseases classified elsewhere; Z90.49 Acquired absence of other specified parts of digestive tract; Z3A.11 11 weeks gestation of pregnancy
CPT/HCPCS: 36415; 76801; 76817; 80048; 80076; 80307; 81001; 81025; 83690; 84702; 85025; 85610; 85730; 86592; 86703; 86705; 86709; 86803; 86900; 86901; 87086; 87340; 87491; 87591; 96365; 96375; 96376; 99285; J0456; J0696; J2405; J7120; Q0111

== ENCOUNTER 2020-09-19 14:10 | Emergency (ER) | payer OTHER ==
[~2020-09-19] VITALS: Ht 165.1 cm; Wt 118.0 kg
[~2020-09-19 14:10] MED LIST changes: +CEPH-264 PO
[2020-09-19 14:21] VITALS: BP 131/85
[2020-09-19] MEDS ORDERED: LIDOCAINE 1% Multi-Dose 20 ML VIAL. IJ ONE (14:30)
--- NOTE | 2020-09-19 14:53 | PHYS DOC ---
Past History Past Medical History: No Pertinent History (PETTY DE LEON APRN) Past Surgical History: Cholecystectomy, Other (PETTY DE LEON APRN) Alcohol Use: None Drug Use: None (PETTY DE LEON APRN) General Adult EDM: Chief Complaint: SKIN PROBLEM HPI: HPI: Patient is a 30 year old Female who presents with right lower chin abscess that she states has gotten better but it has been there for about 5 days. She stated approximately 4 days ago she started on Bactrim antibiotic and was seen at urgent care. She states she has been using a warm compress and it is draining and has opened up. She states that it is still there and she is wanting to know if it needs to be drained more. She rates her pain 6 out of 10. Patient denies fever, headache, dental pain, nausea, vomiting, body aches. (PETTY DE LEON APRN) Review of Systems: Review of Systems: Constitutional: Denies fever or chills Eyes: Denies change in visual acuity HENT: Denies nasal congestion or sore throat Respiratory: Denies cough or shortness of breath Cardiovascular: Denies chest pain or edema GI: Denies abdominal pain, nausea, vomiting, bloody stools or diarrhea : Denies dysuria Musculoskeletal: Denies back pain or joint pain Integument: Denies rash. + Abscess to right lower chin Neurologic: Denies headache, focal weakness or sensory changes Endocrine: Denies polyuria or polydipsia Lymphatic: Denies swollen glands Psychiatric: Denies depression or anxiety (PETTY DE LEON APRN) Current Medications: Current Meds: Current Medications Medications (Trade) Dose Ordered Sig/Angelic Start Time Stop Time Status Last Admin Dose Admin Lidocaine HCl 20 ml 1X ONCE 09/19/20 14:30 09/19/20 14:34 DC 09/19/20 14:30 20 ML (PETTY DE LEON CLINICAL TRIAL MANAGER) Allergies: Allergies: Allergies Coded Allergies Type Severity Reaction Last Updated Verified No Known Drug Allergies 09/19/20 No (PETTY DE LEON APRN) Physical Exam: PE: Constitutional: Well developed, well nourished, no acute distress, non-toxic appearance. [] HENT: Normocephalic, atraumatic, bilateral external ears normal, oropharynx moist, no oral exudates, nose normal. [] Eyes: PERRLA, EOMI, conjunctiva normal, no discharge. [] Neck: Normal range of motion, no tenderness, supple, no stridor. [] Cardiovascular:Heart rate regular rhythm, no murmur [] Lungs & Thorax: Bilateral breath sounds clear to auscultation [] Abdomen: Bowel sounds normal, soft, no tenderness, no masses, no pulsatile masses. [] Skin: Warm, dry, no erythema, no rash. Abscess to right lower chin [] Back: No tenderness, no CVA tenderness. [] Extremities: No tenderness, no cyanosis, no clubbing, ROM intact, no edema. [] Neurologic: Alert and oriented X 3, normal motor function, normal sensory fun ction, no focal deficits noted. [] Psychologic: Affect normal, judgement normal, mood normal. [] (PETTY DE LEON APRN) Current Patient Data: Vital Signs: Vital Signs Date Time Temp Pulse Resp B/P (MAP) Pulse Ox O2 Delivery O2 Flow Rate FiO2 09/19/20 14:21 98.1 95 18 131/85 (100) 96 (PETTY DE LEON APRN) EKG: EKG: [] (PETTY DE LEON APRN) Radiology/Procedures: Radiology/Procedures: [] (PETTY DE LEON APRN) Heart Score: C/O Chest Pain: No Risk Factors: Risk Factors: DM, Current or recent (<one month) smoker, HTN, HLP, family history of CAD, obesity. Risk Scores: Score 0 - 3: 2.5% MACE over next 6 weeks - Discharge Home Score 4 - 6: 20.3% MACE over next 6 weeks - Admit for Clinical Observation Score 7 - 10: 72.7% MACE over next 6 weeks - Early Invasive Strategies (PETTY DE LEON APRN) Course & Med Decision Making: Course & Med Decision Making Pertinent Labs and Imaging studies reviewed. (See chart for details) See HPI. Alert and oriented x4. Ambulatory with a steady gait. Speaks in full clear sentences. Patient has a hard quarter sized right lower facial abscess that is nonfluctuant. There is a open pain on the outside where it has been draining. There is no redness or signs of cellulitis. She is afebrile. I&D Location: Right lower chin up abscess Quarter sized Anesthesia: 1% lidocaine Scalpel size: #11 Skin: [place] warm and dry and no cellulitis Drainage: None Packing: None Patient tolerated the procedure well with no complications. The area was prepped and draped in usual sterile fashion. Area was cleaned with chloehexidine prior to procedure. Return for signs and symptoms of infection education given. Patient to return in 48 hours for wound recheck. (PETTY DE LEON APRN) Dragon Disclaimer: Dragon Disclaimer: This electronic medical record was generated, in whole or in part, using a voice recognition dictation system. (PETTY DE LEON APRN) Departure Departure: Impression: Primary Impression: Abscess Disposition: HOME / SELF CARE / HOMELESS Condition: STABLE Referrals: CHINA OCASIO DO (PCP) Patient Instructions: Abscess Additional Instructions: Follow-up with primary care provider if needed. Take antibiotic with food and as prescribed. Use a warm compress. Attending Signature Attending Signature I have reviewed the PA/CELL OPERATION SUPERVISOR's note and plan of care. I was available for consultation as needed during the patient's visit in the emergency department. I agree with the clinical impression, plan, and disposition. (CHAYO ROYAL DO) PETTY DE LEON APRN Sep 19, 2020 14:53 CHAYO ROYAL DO Sep 20, 2020 00:35
== END 2020-09-19 15:35 | disposition home or self-care (01) ==
LOC: ER 14:10
DX: L02.01 Cutaneous abscess of face (principal)
CPT/HCPCS: 10060; 99283; 99284